=== PATIENT | female | born 1970 | race African-American/Black ===

== ENCOUNTER 2016-09-02 15:03 | Emergency (ER) | payer OTHER ==
[~2016-09-02] VITALS: Ht 157.5 cm; Wt 103.0 kg
[~2016-09-02 15:03] MED LIST: CYCL5TAB PO; NAPR500 PO; Z.0.NO CURRENT MEDS
[2016-09-02 15:16] VITALS: BP 183/127; PULSE 70; RESP 16; TEMP 98.4; O2SAT 100
[2016-09-02] MEDS ORDERED: ACETAMINOPHEN 325 MG TAB PO ONE (16:00)
--- NOTE | 2016-09-02 16:02 | PD ---
HPI Chief Complaint: Fall Time Seen by Provider: 15:42 Travel History International Travel<30 days: No Contact w/Intl Traveler<30days: No Traveled to known affect area: No History of Present Illness HPI 46yo F with PMH of HTN noncompliant with medication presents to the ED with c/o right sided headache, bilateral upper trapezius pain, and xiphoid process and bilateral anterior rib pain s/p slip and fall at 6pm last night. Pt was in kitchen and foot was stuck in the rug and he fell forward. ?LOC. Pt states she was walking after but had more pain overnight. Denies any focal weakness, numbness, sob, n/v, abdominal pain. PFSH Past Medical History Autoimmune Disease: No Blood Disorders: No Cancer: No Cardiovascular Problems: No Chemotherapy: No Chest Pain: Yes Diabetes: No Diminished Hearing: No Endocrine: No Gastrointestinal Disorders: No Glaucoma: No Genitourinary: Yes (BLADDER REPAIR 09/19) Headaches: Yes Hepatitis: No Hiatal Hernia: No Hypertension: Yes Immune Disorder: No Medical other: Yes (FLUID RETENTION) Musculoskeletal: No Neurologic: Yes Psychiatric: No Respiratory: No Radiation Therapy: No Thyroid Disease: No Influenza Vaccination: No ?: Not Past Surgical History Abdominal Surgery: No AICD: No Cardiac Surgery: No Section: Yes Ear Surgery: No Endocrine Surgery: No Eye Surgery: No Genitourinary Surgery: Yes (BLADDER REPAIR 09/19) Gynecologic Surgery: Yes (LAPAROSCOPY X2, JENNIFER, X2, BLADDER SUSP) Hysterectomy: Yes Joint Replacement: No Neurologic Surgery: No Oral Surgery: No Pacemaker: No Thoracic Surgery: No Other Surgery: Yes (HEMMORHOIDECTOMY) Social History Alcohol Use: No Tobacco Use: No Substance Use: No Allergies-Medications (Allergen,Severity, Reaction): Coded Allergies: Morphine (Verified Allergy, Severe, Itching, 09/02/16) Reported Meds & Prescriptions Reported Meds & Active Scripts Active No Active Prescriptions or Reported Medications Review of Systems Except as stated in HPI: all other systems reviewed are Neg Physical Exam Narrative GENERAL: 46yo F not in distress.. SKIN: Warm and dry. HEAD: Atraumatic. Normocephalic. +TTP right frontal region. EYES: Pupils equal and round. No scleral icterus. No injection or drainage. ENT: No hemotympanum. No periorbital ecchymoses or ttp. NECK: No midline ttp. +Paraspinal ttp bilaterally. CARDIOVASCULAR: Regular rate and rhythm. No murmur appreciated. RESPIRATORY: No accessory muscle use. Clear to auscultation. Breath sounds equal bilaterally. CHEST WALL: +TTP xiphoid process and bilateral ribs next to xiphoid process. No erythema or ecchymoses. GASTROINTESTINAL: Abdomen soft, non-tender, nondistended. No rebound tenderness or guarding. MUSCULOSKELETAL: No obvious deformities. No clubbing. No cyanosis. No edema. NEUROLOGICAL: Awake and alert. No obvious cranial nerve deficits. Motor grossly within normal limits. Normal speech. PSYCHIATRIC: Appropriate mood and affect; insight and judgment normal. Data Data Last Documented VS Vital Signs Date Time Temp Pulse Resp B/P Pulse Ox O2 Delivery O2 Flow Rate FiO2 09/02/16 17:33 75 18 203/118 99 Room Air 204/121 09/02/16 15:[address] Brain W/O Iv Contrast(Rout) (09/02/16 ) Chest, Single Ap (09/02/16 ) Acetaminophen (Tylenol) (09/02/16 16:00) Electrocardiogram (09/02/16 ) Amlodipine (Norvasc) (09/02/16 16:15) Clonidine (Catapres) (09/02/16 17:45) MDM Medical Decision Making Medical Screen Exam Complete: Yes Emergency Medical Condition: Yes Interpretation(s) EKG: NSR 69bpm. LAD. No ST segment elevation or depression. TWI III. Differential Diagnosis Musculoskeletal pain vs. tension headache vs. contusion vs. concussion Narrative Course 46yo F with headache and mid sternal atypical chest pain s/p mechanical fall at 6pm yesterday. Pt unsure of LOC. Pt is hypertensive and is suppose to be on HTN medication but has not been in so long that she does not remember what she takes. No focal neurologic deficits. Pt also with uncontrolled HTN and headache, will r/o HTN bleed. Chest pain is more musculoskeletal from fall. CXR negative. CT brain: negative. Pt given acetaminophen and headache has resolved. Pt walking around with no pain anymore and wants to go home. Pt given amlodipine 10mg and clonidine 0.1mg PO. BP is 189/105. No symptoms and wants to go home so will have pt follow up with PMD. Diagnosis Primary Impression: Fall Qualified Code: W19.XXXA - Fall, initial encounter Additional Impression: HTN (hypertension) Qualified Code: I10 - Essential hypertension Patient Instructions: General Instructions Departure Forms: Tests/Procedures Additional Instructions: Please follow up with your PMD in 1-2 days for elevated BP. Med/Other Pt SpecificInfo: Prescription(s) given Scripts Clonidine 0.1 Mg Tab0.1 Mg PO DAILY 7 Days Ref 0 Prov:Jennifer Devries DO 09/02/16 Amlodipine 10 Mg Tab10 Mg PO DAILY 7 Days Ref 0 Prov:Jennifer Devries DO 09/02/16 Disposition: 01 DISCHARGE HOME Condition: Stable Jennifer Devries DO Sep 02, 2016 16:02
--- NOTE | 2016-09-02 16:12 | RADHPO ---
EXAM DATE/TIME: 09/02/2016 16:00 [facility] COMPARISON: No previous studies available for comparison. INDICATIONS : Patient fell yesterday and has been short of breath since. Pain in chest near sternum area. MEDICAL HISTORY : Hypertension. SURGICAL HISTORY : None. ENCOUNTER: Initial ACUITY: 2 days PAIN SCORE: 0/10 LOCATION: Bilateral chest FINDINGS: A single view of the chest demonstrates the lungs to be symmetrically aerated without evidence of mas s, infiltrate or effusion. The cardiomediastinal contours are unremarkable. Osseous structures are intact. CONCLUSION: No acute disease. Rojas Alberto MD FACR on September 02, 2016 at 16:10 Board Certified Radiologist. This report was verified electronically.
[2016-09-02 17:33] VITALS: BP_SYST 203; BP_SYST 204; BP_DIAS 118; BP_DIAS 121; PULSE 75; RESP 18; O2SAT 99
[2016-09-02] MEDS ORDERED: cloNIDine HCL 0.1 MG TAB PO ONE (17:45)
--- NOTE | 2016-09-02 18:25 | RADHPO ---
EXAM DATE/TIME: 09/02/2016 17:53 [facility] COMPARISON: No previous studies available for comparison. INDICATIONS : Mechanical fall with right sided head trauma one day ago. Right sided headache since. RADIATION DOSE: 65.88 CTDIvol (mGy) MEDICAL HISTORY : Hypertension. SURGICAL HISTORY : Hysterectomy. ENCOUNTER: Initial ACUITY: 1 day PAIN SCALE: 7/10 LOCATION: Right cranial TECHNIQUE: Multiple contiguous axial images were obtained of the head. Using automated exposure control and adj ustment of the mA and/or kV according to patient size, radiation dose was kept as low as reasonably a chievable to obtain optimal diagnostic quality images. FINDINGS: CEREBRUM: The ventricles are normal for age. No evidence of midline shift, mass lesion, hemorrhage or acute in farction. No extra-axial fluid collections are seen. POSTERIOR FOSSA: The cerebellum and brainstem are intact. The 4th ventricle is midline. The cerebellopontine angle i s unremarkable. EXTRACRANIAL: The visualized portion of the orbits is intact. SKULL: The calvaria is intact. No evidence of skull fracture. CONCLUSION: Normal examination for a patient of this age. Gentry Edouard MD on September 02, 2016 at 18:23 Board Certified Radiologist. This report was verified electronically.
[2016-09-02 18:35] VITALS: BP 189/105
[2016-09-02] MEDS ORDERED: AMLO10TA2 PO (18:36)
[2016-09-02] MEDS ORDERED: CLON0.1T PO (18:37)
[2016-09-02 18:48] VITALS: BP 169/93
--- NOTE | 2016-09-05 23:02 | EKG ---
Date Performed: 09/02/2016 Time Performed: 16:02:24 PTAGE: 46 years EKG: Sinus rhythm Leftward axis Borderline ECG PREVIOUS TRACING : 02/20/2008 11.42 Compared to prior tracing no significant change DOCTOR: Osei Chambers Interpretating Date/Time 09/05/2016 23:01:33
== END 2016-09-02 18:59 | disposition home or self-care (01) ==
LOC: PHED 15:03
DX: R07.89 Other chest pain (principal); R51 Headache; M25.511 Pain in right shoulder; I10 Essential (primary) hypertension; W01.0XXA Fall on same level from slipping, tripping and stumbling without subsequent striking against object, initial encounter; Y93.9 Activity, unspecified; Y92.233 Cafeteria of hospital as the place of occurrence of the external cause; Y99.0 Civilian activity done for income or pay
CPT/HCPCS: 70450; 71010; 93005